=== PATIENT | female | born 1980 | race Caucasian/White ===

== ENCOUNTER → 2020-10-23 | Outpatient (CLI) | payer BC ==
--- NOTE | 2020-10-24 06:28 | REP ---
INDICATION: VENOUS INSUFFICIENCY (CHRONIC) COMPARISON: None. TECHNIQUE: Lozoya scale and color Doppler evaluation bilateral lower extremities using linear high frequency transducer including reflux evaluation. FINDINGS: Ultrasound examination of the right and left lower extremity deep venous structures from the common femoral vein to the popliteal vein demonstrates normal compressibility flow and wave patterns in response to respiration and augmentation. There is no evidence for deep venous thrombosis. Left lower extremity demonstrates no evidence for reflux. Right lower extremity demonstrates negligible reflux in the distal femoral vein/popliteal vein and no reflux through the greater saphenous vein/superficial system. IMPRESSION: No evidence for deep venous thrombosis. Essentially no reflux. As above. <Electronically signed by Modesto Castillo > 10/24/20 [id number]
== END ==
LOC: M RAD 10:03
PROVIDERS: ATTEND Physician Assistant
DX: I87.2 Venous insufficiency (chronic) (peripheral) (principal); I83.813 Varicose veins of bilateral lower extremities with pain